=== PATIENT | female | born 1965 | race Caucasian/White ===

== ENCOUNTER 2016-10-07 14:33 | Emergency (ER) | payer OTHER, MEDICAID ==
[2016-10-07 15:09] VITALS: BP 134/83; PULSE 80; RESP 20; TEMP 97.9; O2SAT 96
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
== END 2016-10-07 15:40 | disposition home or self-care (01) ==
DX: S09.90XA Unspecified injury of head, initial encounter (principal); S50.312A Abrasion of left elbow, initial encounter; V73.6XXA Passenger on bus injured in collision with car, pick-up truck or van in traffic accident, initial encounter; Y92.410 Unspecified street and highway as the place of occurrence of the external cause